=== PATIENT | female | born 1990 | race Caucasian/White ===

== ENCOUNTER 2018-07-14 10:11 | Emergency (ER) | payer OTHER ==
[~2018-07-14] VITALS: Ht 160 cm; Wt 77.3 kg
[2018-07-14 10:12] VITALS: BP 126/74
[2018-07-14] MEDS ORDERED: CLIN1GEL37 TOP (10:30)
[2018-07-14] MEDS ORDERED: SPIR-10 PO (10:30)
== END 2018-07-14 11:02 | disposition home or self-care (01) ==
LOC: M ED 10:11
DX: L72.3 Sebaceous cyst (principal)

== ENCOUNTER → 2019-06-09 | Outpatient (REF) | payer OTHER ==
[~2019-06-09] MED LIST: CLIN1GEL37 TOP; SPIR-10 PO
== END ==
LOC: M SFHCLERA 18:00
PROVIDERS: ATTEND Physician Assistant
DX: R30.0 Dysuria (principal)
CPT/HCPCS: 81002; 81025; 87086; G0463

== ENCOUNTER 2020-04-08 17:11 | Day surgery (SDC) | payer OTHER ==
[~2020-04-08] VITALS: Ht 160 cm; Wt 58.7 kg
[2020-04-08] MEDS ORDERED: OXYC1TAB23 PO (17:22)
[2020-04-08] MEDS ORDERED: IBUP80TA PO (17:22)
[2020-04-08 18:33] LABS: BASO # 0.1 10^3/uL (0.0-0.2); BASO % 0.5 % (0.0-1.0); EOS % 0.2 % (0.0-3.0); HEMATOCRIT 44.6 % (36.0-47.0); HEMOGLOBIN 14.9 g/dl (12.0-15.5); LYMPH # 2.5 10^3/uL (1.5-5.0); LYMPH % 24.7 % (24.0-44.0); MEAN CORPUSCULAR HEMOGLOBIN 30.8 pg (27.0-33.0); MEAN CORPUSCULAR HGB CONC 33.4 g/dl (32.0-36.5); MEAN CORPUSCULAR VOLUME 92.1 fl (80.0-96.0); MONO # 0.6 10^3/uL (0.0-0.8); MONO % 6.3 % (0.0-5.0); NEUTROPHILS # 6.8 10^3/uL (1.5-8.5); NEUTROPHILS % 67.9 % (36.0-66.0); PLATELET COUNT, AUTOMATED 254 10^3/uL (150-450); RED BLOOD COUNT 4.84 10^6/uL (4.00-5.40)
[2020-04-08] MEDS ORDERED: BUPIVACAINE HCL 0.25% 30ML VIAL As Ordered ONE (18:39)
[2020-04-08 18:53] LABS: BLOOD UREA NITROGEN 11 MG/DL (7-18); CALCIUM LEVEL 9.7 MG/DL (8.5-10.1); CARBON DIOXIDE LEVEL 28 MEQ/L (21-32); CHLORIDE LEVEL 103 MEQ/L (98-107); CREATININE FOR GFR 0.97 MG/DL (0.55-1.30); GLOMERULAR FILTRATION RATE > 60.0 (>60); GLUCOSE, FASTING 91 MG/DL (70-100); LDH LACTATE DEHYDROGENASE 167 U/L (84-246); POTASSIUM SERUM 3.6 MEQ/L (3.5-5.1); SODIUM LEVEL 139 MEQ/L (136-145)
[2020-04-08] MEDS ORDERED: SPIR100T3 PO (18:57)
[2020-04-08] MEDS ORDERED: BIOT1CAP2 PO (18:57)
[2020-04-08] MEDS ORDERED: VITMTA PO (18:57)
[2020-04-08] MEDS ORDERED: APPL300T4 PO (18:57)
[2020-04-08] MEDS ORDERED: [UNRECOGNIZED DRUG - OTHER] PO (18:57)
[2020-04-08 19:04] LABS: ESTRADIOL 103.5 PG/ML
[2020-04-08 19:05] LABS: HCG, SERUM QUALITATIVE NEGATIVE (NEGATIVE)
--- NOTE | 2020-04-08 19:07 | HPEPDOC ---
General Date of Admission Date of Service: Apr 08, 2020 Chief Complaint The patient is a 29-year-old female admitted with a reason for visit of Suspected Ovarian Torsian. History of Present Illness 29yo LMP [id number] presented to the ED in [place] yesterday with excruciating pain that was sudden in onset. She experienced nausea and sharp pain in her mid pelvis. A CT and pelvic US were done and a 5cm sold adnexal mass was noted and it was suspected she had an ovarian torsion. She was admitted, observed, and given percocet which helped her pain some. She was then discharged and followed up with her PCM today who emergently contacted me with her consult. I told him to send her to the ER. At this time she does have improved pain, but she does have a constant pain in her mid pelvis that has intermittent periods of worsening. She has had no appetite and in the past 24h has only had a couple bites of a banana at 1230. She otherwise denied v/d, cp, sob, luz, visual changes, f/c, irregular vb, dc, urinary sx. Home Medications Scheduled Spironolactone (Spironolactone) 25 Mg Tab, Unknown Dose PO DAILY, (Reported) Miscellaneous Medications Ibuprofen (Ibuprofen) 800 Mg Tablet, (Reported) Oxycodone HCl/Acetaminophen (Oxycodone-Acetaminophen 5-325) 1 Each Tablet, (Reported) Allergies Coded Allergies: No Known Allergies (Unverified , 07/14/18) Past Medical History Medical History acne Surgical History CD x2, beast augmentation, LSC BTL, T+A Family History Significant Family History: No pertinent family hx Social History * Smoker: Denies Alcohol: Denies Drugs: denies Recent Travel/Sick Contacts: Denies: Recent travel, Recent sick contacts Psychosocial History: No pertinent psych hx A-FIB/CHADSVASC A-FIB History Current/History of A-Fib/PAF?: No Current PO Anticoag Therapy: No Age/Risk Factor Scoring CHADSVASC: CHADSVASC Response (Comments) Value Age Risk Factor Age < 65 years old 0 Gender Risk Factor Female 1 Hx of CHF No 0 Hx of HTN No 0 Hx of Stroke/TIA/or VTE No 0 Hx of Diabetes No 0 Hx of Vascular Disease No 0 Total 1 Treatment Treatment ordered: Other (SCDs, early ambulation) Other anticoagulant ordered: SCDs, early ambulation Physical Examination General Exam: Positive: Alert, No Acute Distress ENT Exam: Positive: Atraumatic, Mucous membr. moist/pink Neck Exam: Positive: Supple Chest Exam: Positive: Clear to auscultation, Normal air movement Heart Exam: Positive: Rate Normal Abdomen Exam: Positive: Normal bowel sounds, Soft, Other (pain in bilateral LQ, but worse suprapubic, no rebound or gaurding, exam limited by pain) Skin Exam: Positive: Nl turgor and temperature Neuro Exam: Positive: Normal Gait Psych Exam: Positive: Mental status NL Vital Signs Vital Signs Date Time Temp Pulse Resp B/P (MAP) Pulse Ox O2 Delivery O2 Flow Rate FiO2 04/08/20 18:38 04/08/20 17:11 99.4 100 18 100 Room Air Laboratory Data Labs 24H Laboratory Tests 2 04/08/20 17:50: Immature Granulocyte % (Auto) 0.4, Neutrophils (%) (Auto) 67.9H, Lymphocytes (%) (Auto) 24.7, Monocytes (%) (Auto) 6.3H, Eosinophils (%) (Auto) 0.2, Basophils (%) (Auto) 0.5, Neutrophils # (Auto) 6.8, Lymphocytes # (Auto) 2.5, Monocytes # (Auto) 0.6, Eosinophils # (Auto) 0.0, Basophils # (Auto) 0.1, Nucleated Red Blood Cells % (auto) 0.0, Anion Gap 8, Glomerular Filtration Rate > 60.0, Calcium Level 9.7, Lactate Dehydrogenase 167 CBC/BMP Laboratory Tests 04/08/20 17:50 Assessment/Plan 30yo LMP [id number] with suspected ovarian torsion, pain started yesterday. TVUS at [place] with 5cm solid cyst in the L adnexa, otherwise normal. VS normal. Exam with tender lower abdomen (mid pelvis > R/L pelvis). Mild WBC elevation at 10. Otherwise normal CBC. CMP normal. Suspect intermittent vs persistent ovarian torsion. - pending labs: COVID19, hCG, ovarian tumor markers, T+S - mason foreman/superintendant to the OR for suspected intermittent vs persistent ovarian torsion - ovarian tumor markers ordered given solid character on [place] TVUS - SCDs and early ambulation for DVT prophylaxis - abx not indicated for procedure - tylenol and scopolamine ordered for pre-op medications - patient educated on the r/b/a of diagnostic laparoscopy with possible right vs left oophorectomy vs ovarian cystectomy, other biopsies and procedures as indicated, and blood transfusion and would like to proceed - plan for post-op follow up for results and tumor markers in 2wk - provided with sick slip for 7 d of convalescent leave Plan / VTE VTE Prophylaxis Ordered?: Yes (SCDs, early ambulation) CAROL VELIZ DO Apr 08, 2020 19:07
[2020-04-08] MEDS ORDERED: propofoL 200 MG/20 ML VIAL As Ordered ONE ×2 (19:30→21:19)
[2020-04-08] MEDS ORDERED: LIDOCAINE 2% 100MG/5ML SDV (FOR ANES.) As Ordered ONE (19:30)
[2020-04-08] MEDS ORDERED: ROCURONIUM BROMIDE 50 MG/5 ML VIAL As Ordered ONE (19:30)
[2020-04-08] MEDS ORDERED: MIDAZOLAM INJ 2MG/2ML VIAL (J2250 PER 1MG) As Ordered ONE (19:31)
[2020-04-08] MEDS ORDERED: fentaNYL 250 MCG/5 ML INJECTION (J3010) As Ordered ONE (19:31)
[2020-04-08 19:33] LABS: CA 125 19.1 U/ML (<30.2); CA19-9 TUMOR MARKER,CARBOHYDRA 30.3 U/ML (<35.0)
[2020-04-08] MEDS ORDERED: SCOPOLAMINE 1MG TRANSDERMAL PATCH As Ordered ONE (20:14)
[2020-04-08] MEDS ORDERED: dexameTHASONE 4 MG/ML 1ML VIAL (J1100 PER 1MG) As Ordered ONE (20:21)
[2020-04-08] MEDS ORDERED: ACETAMINOPHEN 1000MG 100ML IV BTL (OFIRMEV) (J0131 PER 10MG) As Ordered ONE (20:25)
[2020-04-08] MEDS ORDERED: SUCCINYLCHOLINE 100 MG/5 ML SYRINGE (J0330) As Ordered ONE (20:26)
[2020-04-08] MEDS ORDERED: METOCLOPRAMIDE INJ 10MG/2ML VIAL (J2765 PER 1) As Ordered ONE (20:38)
[2020-04-08] MEDS ORDERED: ONDANSETRON 4MG/2ML VIAL As Ordered ONE (20:38)
[2020-04-08] MEDS ORDERED: KETOROLAC 60MG 2ML VIAL As Ordered ONE (20:39)
[2020-04-08] MEDS ORDERED: SUGAMMADEX SODIUM 500 MG/5 ML VIAL (BRIDION) As Ordered ONE (20:39)
[2020-04-08] MEDS ORDERED: SILVER NITRATE APPLICATOR As Ordered ONE (21:10)
--- NOTE | 2020-04-08 21:33 | ROOPDOC ---
[facility] Report Of Operation Report of Operation DATE OF PROCEDURE: 04/08/20 PREPROCEDURE DIAGNOSES: suspected ovarian torsion POSTPROCEDURE DIAGNOSES: endometriosis, ruptured endometroma PROCEDURE: left ovarian cystectomy SURGEON: Shoaib Veliz DO POLISHER ALUMINUM: Dav Mixon MD ANESTHESIA: general ESTIMATED BLOOD LOSS: Approximately 125 mL. COMPLICATIONS: none REMARKS: none PROCEDURE NOTE: The risks, benefits, and alternatives of the procedure were discussed and written consent was obtained. The patient was taken to the OR where she was placed under general anesthesia and positioned in low lithotomy with her arms tucked. The vagina, perineum and abdomen were prepped and draped in a sterile fashion and a dawn catheter was placed in the bladder. A final time out was performed. The operative speculum was placed in the vagina and a single tooth tenaculum was used to grasp the anterior lip of the cervix. An accorn uterine manipulator was then placed and the speculum was removed. Gloves were changed. 0.5% marcaine approx 5cc was injected into the infraumbilical fold and a 10mm incision was made with a 11 blade. Using the direct technique a 10mm port was placed. The opening pressure was 5mmHg and there was no trauma below the entry site. The area 2cm superior and medial to the bilateral ASISs was identified via transillumination and direct visualization. 0.5% marcaine was injected and 5mm incisions were made with the 11 blade. 5mm ports were then placed under direct visualization. An anatomy survey revealed a normal appearing liver, gallbladder and stomach edge, uterus and right ovary. The appendix was not visualized. The bilateral fallopian tubes were disrupted mid tube and filshie clips were noted in the posterior cul de sac. The left ovary was enlarged and had a ruptured hemorrhagic cyst vs endometrioma. There was approx 100cc of blood suctioned from the pelvis. Using an atraumatic grasper the fishie clips were removed from the pelvis through the 10mm port. The cyst was suctioned of all contents and the cyst wall was grasped with the atraumatic graspers and peeled from the healthy ovarian tissue. The wall was sent for pathology. The cyst bed was hemostatic on completion. The pneumoperitoneum was released and the cyst bed remained hemostatic. The ports were removed. The 10mm port fascia was closed with 0-vicryl in a running fashion. All ports were then reapproximated with 3-0 monocryl and secured with dermabond. The accorn manipulator and tenaculum were removed. A sponge stick was placed in the vagina to apply pressure to the puncture sites. The dawn was removed. The sponge stick was then removed and there was no vaginal bleeding noted. The sponge, lap, and needle counts were correct x2. The patient tolerated the procedure well and there were no complications. She was transferred to the PACU in stable condition. SHOAIB VELIZ DO Apr 08, 2020 21:33
[2020-04-08] MEDS ORDERED: oxyCODONE 5MG TAB As Ordered ONE (21:55)
[2020-04-08] MEDS ORDERED: oxyCODONE 5MG TAB PO PRN ×2 (22:00)
[2020-04-08] MEDS ORDERED: HYDROMORPHONE HCL 0.5 MG/ 0.5 ML SYRINGE (J1170 PER 1) IV PRN (22:00)
[2020-04-08] MEDS ORDERED: ONDANSETRON 4MG/2ML VIAL IV PRN (22:00)
[2020-04-08] MEDS ORDERED: fentaNYL 100 MCG/2 ML INJECTION (J3010) IV PRN (22:00)
[2020-04-08] MEDS ORDERED: LR 1,000 ML IV SCH (22:00)
[2020-04-08] MEDS ORDERED: ONDANSETRON 4 MG ORAL DISINTEGRATING TAB PO PRN (22:00)
[2020-04-08 22:45] VITALS: BP 132/80
[2020-04-15 16:08] LABS: BETA-2 GLYCOPROTEIN I ABY IGA <9 (0-25); BETA-2 GLYCOPROTEIN I ABY IGG <9 (0-20); BETA-2 GLYCOPROTEIN I ABY IGM <9 (0-32); HCG SERUM TUMOR MARKER QUANT < 1 mIU/mL (.); HE4 33.2 pmol/L (0.0-61.2); INHIBIN A ULTRASENSITIVE 4.1 pg/mL (.)
== END 2020-04-08 22:45 | disposition home or self-care (01) ==
LOC: M ED 17:11 → M SDC 18:24
PROVIDERS: ATTEND Obstetrics & Gynecology
DX: N83.202 Unspecified ovarian cyst, left side (principal); N80.9 Endometriosis, unspecified
CPT/HCPCS: 36415; 58925; 80048; 82105; 82378; 82670; 83520; 83615; 84702; 84703; 85025; 86146; 86301; 86304; 86305; 86336; 86850; 86900; 86901; 88300; 88305; 99284; J0131; J0330; J1100; J1885; J2250; J2405; J2765; J3010; U0002